=== PATIENT | female | born 1995 | race Two or more races ===

== ENCOUNTER → 2016-09-26 | Outpatient (CLI) | payer OTHER ==
[~2016-09-26] MED LIST: IBUP200T48 PO; OXYC-302 PO
[2016-09-26 11:04] LABS: ASPARTATE AMINO TRANSFERASE 11 U/L (15-37); BLOOD UREA NITROGEN 14 mg/dL (7-18)
== END | disposition home or self-care (01) ==
LOC: LAB 10:34
PROVIDERS: ATTEND Internal Medicine
DX: R73.03 Prediabetes (principal)
CPT/HCPCS: 36415; 80053; 83036

== ENCOUNTER 2020-05-24 14:55 | Outpatient (CLI) | payer OTHER ==
[~2020-05-24 14:55] MED LIST changes: -IBUP200T48 PO; +IBUP200T49 PO
== END 2020-05-24 23:59 | disposition home or self-care (01) ==
LOC: CVU 14:55
PROVIDERS: ATTEND Internal Medicine Cardiovascular Disease
DX: I47.1 Supraventricular tachycardia (principal); R73.03 Prediabetes
CPT/HCPCS: 93306; 93356